=== PATIENT | female | born 1975 | race Two or more races ===

== ENCOUNTER 2017-04-16 09:03 | Emergency (ER) | payer SELFPAY ==
[~2017-04-16] VITALS: Ht 165.1 cm; Wt 59.0 kg
[2017-04-16 09:03] VITALS: BP 132/82
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
[2017-04-16] MEDS ORDERED: ACETAMINOPHEN500 M5 PO (10:52)
[2017-04-16 10:55] VITALS: BP 127/81
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
== END 2017-04-16 10:55 | disposition home or self-care (01) ==
LOC: EDBD 09:03 → EMR 09:34
DX: R51 Headache (principal); R11.10 Vomiting, unspecified; V43.52XA Car driver injured in collision with other type car in traffic accident, initial encounter; Y92.410 Unspecified street and highway as the place of occurrence of the external cause
CPT/HCPCS: 70450; 99284